=== PATIENT | male | born 1980 | race Caucasian/White ===

== ENCOUNTER 2023-12-14 22:20 | Inpatient (IN) ==
[2023-12-14] MEDS ORDERED: Acetaminophen IV 1 GM/100ML 1,000 MG/100 ML BAG IV PRN (22:55)
[2023-12-14] MEDS ORDERED: Bupivacaine 0.25% EPI 200,000 30 ML SDV ONE (23:03)
[2023-12-14] MEDS: HYDROmorphone 1 MG/1 ML SYRINGE IV SLOW PU PRN (23:29)
[2023-12-14] MEDS ORDERED: Lactated Ringers 1000 ml BAG 1,000 ML IV SCH (23:45)
[2023-12-14] MEDS ORDERED: Buffered Lidocaine 1% SYRIN 1 ml INTRADERM ONE (23:58)
[2023-12-14] MEDS ORDERED: Scopolamine 1 mg/72hr PATCH TRANSDERM ONE (23:58)
[2023-12-15] MEDS ORDERED: Naloxone 0.4 mg VIAL 0.4 mg/ml 1 ml VIAL IV PRN ×2
[2023-12-15] MEDS ORDERED: fentaNYL 100 mcg/2 ml 50 MCG/ML VIAL IV PRN
[2023-12-15] MEDS ORDERED: Metoclopramide 5 MG/ML VIAL (10 mg) IV PRN
[2023-12-15] MEDS ORDERED: Ondansetron 4 mg VIAL 2 MG/ML 2 ml VIAL IV PRN
[2023-12-15] MEDS ORDERED: Propofol 10 MG/ML 20 ML BTL ONE (00:45)
[2023-12-15] MEDS ORDERED: Rocuronium 50 mg VIAL 10 mg/ml 5 ml VIAL (50 mg) ONE ×3 (00:45→02:37)
[2023-12-15] MEDS ORDERED: fentaNYL 100 mcg/2 ml 50 MCG/ML VIAL ONE (00:45)
[2023-12-15] MEDS ORDERED: Lidocaine 2% PF 5 ML VIAL ONE (00:45)
[2023-12-15] MEDS ORDERED: Midazolam 2 mg/2 ml VIAL 1 mg/ml 2 ml VIAL (2 mg) ONE (00:46)
[2023-12-15] MEDS ORDERED: diazePAM INJ CARPUJECT 5 MG/ML SYRINGE IV PRN (01:18)
[2023-12-15] MEDS ORDERED: fentaNYL 250 mcg/5 ml 50 MCG/ML 5 ml VIAL (250 MCG) ONE (01:51)
[2023-12-15] MEDS ORDERED: LORazepam 2 mg VIAL 1 ml IV PUSH SCH (02:00)
[2023-12-15] MEDS ORDERED: Lorazepam PYXIS KEY PRN (04:16)
[2023-12-15] MEDS: D5W 1/2 NS 40 Meq KCL 1000 ml 1,000 ML IV SCH (04:20)
[2023-12-15 05:23] LABS: ABS Lymphocytes 0.3 10^3/uL (1.0-4.8); ABS Monocytes 0.5 10^3/uL (0.0-1.1); ABS Neutrophils 11.6 10^3/uL (1.5-7.6); Hematocrit 44.8 % (38-53); Hemoglobin 15.4 g/dL (13.2-16.3); Lymphocyte % 2.3 %; Mean Corpuscular Hemoglobin 34.9 pg (27-33); Mean Corpuscular Hgb Conc 34.5 g/dL (31-36); Mean Corpuscular Volume 101.2 fL (80-97); Mean Platelet Volume 6.7 fL (7.5-11.2); Platelet Count 245 10^3/uL (150-450); Red Blood Count 4.42 10^6/uL (4.06-5.63); Red Cell Distribution Width 13.2 % (12-17); White Blood Count 12.4 10^3/uL (3.6-10.2)
[2023-12-15 05:50] LABS: Calcium 9.1 mg/dL (8.6-10.3); Creatinine, Serum 0.52 mg/dL (0.67-1.17); Potassium 4.2 mmol/L (3.5-5.0); eGFR CKD-EPI 129.1 (>60)
[2023-12-15] MEDS: Piperacillin/Tazobac 3.375 BAG 3.375 GM/100 ML BAG IV SCH ×2 (05:51→05:55)
[2023-12-15 07:48] LABS: Magnesium 1.7 mg/dL (1.9-2.7)
[2023-12-15] MEDS: Pantoprazole VIAL 40 MG VIAL IV SCH (08:09)
[2023-12-15 08:14] LABS: Folate 12.97 ng/mL (5.90-24.80)
[2023-12-15] MEDS: Magnesium Sulfate 2 gm BAG 2 GM/50 ML BAG IVPB ONE (09:25)
[2023-12-15] MEDS: Phenol 1.4% Throat Spray BTL MT PRN (10:02)
[2023-12-15] MEDS: Nicotine PATCH 14 MG/24 HR PATCH TRANSDERM SCH (10:05)
[2023-12-15] MEDS: Thiamine 100 MG/ML 2 ml VIAL 100 MG, Folic Acid IV 1 MG, Multiple Vitamin IV ADULT 10 M... IV ONE (11:09)
[2023-12-15] MEDS: Acetaminophen IV 1 GM/100ML 1,000 MG/100 ML BAG IV SCH (12:53)
[2023-12-16] MEDS: Ondansetron 4 mg VIAL 2 MG/ML 2 ml VIAL IV PRN (00:23)
[2023-12-16 06:15] LABS: ABS Eosinophils 0.1 10^3/uL (0.0-0.5); ABS Lymphocytes 1.2 10^3/uL (1.0-4.8); ABS Monocytes 0.8 10^3/uL (0.0-1.1); ABS Neutrophils 9.1 10^3/uL (1.5-7.6); Eosinophil % 0.8 %; Hematocrit 40.2 % (38-53); Hemoglobin 13.8 g/dL (13.2-16.3); Lymphocyte % 10.6 %; Mean Corpuscular Hemoglobin 35.1 pg (27-33); Mean Corpuscular Hgb Conc 34.3 g/dL (31-36); Mean Corpuscular Volume 102.3 fL (80-97); Platelet Count 218 10^3/uL (150-450); Red Blood Count 3.93 10^6/uL (4.06-5.63); Red Cell Distribution Width 13.1 % (12-17); White Blood Count 11.1 10^3/uL (3.6-10.2)
[2023-12-16 06:26] LABS: Albumin 3.4 g/dL (3.2-5.2); Albumin/Globulin Ratio 1.5 (1-3); Calcium 8.9 mg/dL (8.6-10.3); Creatinine, Serum 0.61 mg/dL (0.67-1.17); Globulin 2.2 g/dL (2-4); Potassium 4.3 mmol/L (3.5-5.0); Total Bilirubin 0.4 mg/dL (0.2-1.0); Total Protein 5.6 g/dL (6.4-8.9)
[2023-12-16] MEDS: Thiamine 100 MG/ML 2 ml VIAL 100 MG in NS 0.9% 50 ML 50 ML IV SCH (09:36)
[2023-12-16] MEDS ORDERED: Metoprolol Tartrate 5 mg VIAL 5 ml VIAL (1 mg/ml) IV PRN (17:46)
[2023-12-16] MEDS: diazePAM INJ CARPUJECT 5 MG/ML SYRINGE IV PRN (21:44)
[2023-12-17] MEDS: Enoxaparin 40 MG/0.4 ML SYR SUBCUT SCH (11:14)
[2023-12-17] MEDS: HYDROmorphone 0.5 MG/0.5 ML SYRINGE IV SLOW PU PRN (18:29)
[2023-12-17] MEDS: diazePAM INJ CARPUJECT 5 MG/ML SYRINGE IV ONE (21:22)
[2023-12-18] MEDS: Gemfibrozil 600 mg PO SCH (20:37)
[2023-12-19] MEDS: Venlafaxine XR 75 mg PO SCH (09:45)
== END 2023-12-20 14:15 | disposition home or self-care (01) | DRG 710 ==
LOC: ED 22:20 → SUATTDRO 22:51 → SDS 23:27 → SSU 23:28 → SDS 12-15 00:52 → SSU 12-15 02:48
PROVIDERS: ADMIT Internal Medicine Clinical Cardiac Electrophysiology; ATTEND Surgery